=== PATIENT | female | born 1960 | race Caucasian/White ===

== ENCOUNTER 2018-05-23 09:29 | Emergency (ER) | payer BC ==
[2018-05-23 10:25] VITALS: BP 117/65
[2018-05-23 10:52] LABS: Influenza A Molecular NEGATIVE (Negative); Influenza B Molecular NEGATIVE (Negative)
--- NOTE | 2018-05-23 11:15 | UC ---
Throat Pain/Nasal Jian HPI - HPI Summary HPI Summary: Per RN arlene "TWO WEEKS AGO SHE NOTICED A "STY" RIGHT LOWER EYE LID. THEN HEADACHE, SINUS CONGESTION, BODYACHES. LAST NIGHT SHE HAD CHILLS, SORE THROAT , POST NASAL DRIP. HEADACHE OVER RIGHT EYE. NO N/V/D. PT STATES SHE WOKE IN THE NIGHT LAST NIGHT TO URINATE FREQ. NO PAIN OR BURNING." - rt forehead pain has been ongoing x 1.5 wks. nose is stuffy. head feels "echoing". no signfiicant cough. - History of Current Complaint Chief Complaint: UCRespiratory Stated Complaint: COUGH,HEADACHE,SORE THROAT Time Seen by Provider: 05/23/18 11:13 Pain Intensity: 3 - Allergies/Home Medications Allergies/Adverse Reactions: Allergies Allergy/AdvReac Type Severity Reaction Status Date / Time No Known Allergies Allergy Verified 05/23/18 10:14 Home Medications: Home Medications Levothyroxine TAB* [Synthroid TAB*] 112 mcg PO DAILY 05/23/18 [History Confirmed 05/23/18] PARoxetine HCL TAB* [Paxil TAB*] 30 mg PO DAILY 05/23/18 [History Confirmed ] PMH/Surg Hx/FS Hx/Imm Hx Previously Healthy: Yes - Surgical History Surgical History: Yes Surgery Procedure, Year, and Place: HYSTRECTOMY. C- SECTIONS-TWO. APPENDECTOMY. BREAST REDUCTION. - Social History Alcohol Use: None Substance Use Type: None Smoking Status (MU): Never Smoked Tobacco Review of Systems All Other Systems Reviewed And Are Negative: Yes Constitutional: Positive: Fatigue Skin: Positive: Negative Eyes: Positive: Other - stye ENT: Positive: Ear Ache, Nasal Discharge, Sinus Pain/Tenderness. Negative: Dental Pain, Sore Throat, Sinus Congestion Respiratory: Positive: Negative Cardiovascular: Positive: Negative Gastrointestinal: Positive: Negative Genitourinary: Positive: Frequency - just last night. no dysuria. Motor: Positive: Negative Neurovascular: Positive: Negative Musculoskeletal: Positive: Negative Neurological: Positive: Negative Psychological: Positive: Negative Is Patient Immunocompromised?: No Physical Exam Vital Signs: Initial Vital Signs Temp 98.1 F 05/23/18 10:16 Pulse 73 05/23/18 10:16 Resp 18 05/23/18 10:16 BP 117/65 05/23/18 10:16 Pulse Ox 99 05/23/18 10:16 Throat Pain/Nasal Course/Dx - Course Course Of Treatment: rapid flu neg UA + 2 LE, tr blood -amox 500mgs tid x 10 d. probiotic -no urine treatment indicated at this time. she should FU w/ her PCP if sx develop. - Differential Dx/Diagnosis Differential Diagnosis/HQI/PQRI: Influenza, Pharyngitis, URI Provider Diagnosis: Sinusitis, acute Provider Diagnosis: (Ruled Out): Sinusitis chronic, frontal Discharge - Sign-Out/Discharge Documenting (check all that apply): Patient Departure All imaging exams completed and their final reports reviewed: No Studies - Discharge Plan Condition: Stable Disposition: HOME Prescriptions: Amoxicillin PO (*) [Amoxicillin 500 MG CAP*] 500 mg PO TID #30 cap Patient Education Materials: Sinusitis (ED) Referrals: Kieran Silvestre MD [Primary Care Provider] - Additional Instructions: Make sure to take a probiotic daily while on antibiotics to help prevent a potential complication of antibiotic use called c diff. Some well known brands that can be found OTC are florastor, align and [employer]. Make sure to complete the entire prescription unless advised otherwise by your health care provider. -You should follow up with your PCP if your symptoms increase or persist - Billing Disposition and Condition Condition: STABLE Disposition: Home
--- NOTE | 2018-05-25 07:15 | UC ---
- Progress Note Progress Note: no growth - final No change Viviana 05/25/18 Course/Dx - Diagnoses Provider Diagnoses: Sinusitis, acute Discharge - Sign-Out/Discharge Documenting (check all that apply): Post-Discharge Follow Up All imaging exams completed and their final reports reviewed: No Studies - Discharge Plan Condition: Stable Disposition: HOME Prescriptions: Amoxicillin PO (*) [Amoxicillin 500 MG CAP*] 500 mg PO TID #30 cap Patient Education Materials: Sinusitis (ED) Referrals: Kieran Silvestre MD [Primary Care Provider] - Additional Instructions: Make sure to take a probiotic daily while on antibiotics to help prevent a potential complication of antibiotic use called c diff. Some well known brands that can be found OTC are florastor, align and [employer]. Make sure to complete the entire prescription unless advised otherwise by your health care provider. -You should follow up with your PCP if your symptoms increase or persist - Billing Disposition and Condition Condition: STABLE Disposition: Home
== END 2018-05-23 11:26 | disposition home or self-care (01) ==
LOC: UCCORT 09:29
DX: J01.90 Acute sinusitis, unspecified (principal); H00.012 Hordeolum externum right lower eyelid
CPT/HCPCS: 81003; 87086; 99202; G0463